=== PATIENT | female | born 1990 | race African-American/Black ===

== ENCOUNTER 2017-07-08 21:19 | Emergency (ER) | payer OTHER, SELFPAY ==
[2017-07-08 21:43] LABS: Pregnancy Test - Urine (BHCG) POSITIVE (Negative); Pregu Control Background? CLEAR/WHITE (CLR/WHITE); Pregu Control Bar Appear? YES (CONTROL BAR)
[2017-07-08 21:44] LABS: Bilirubin Negative (Negative); Blood, Urine Negative (Negative); Clarity CLEAR (Clear); Glucose, Urine (Dipstick) Negative (Negative); Leukocyte Small (Negative); Nitrite Negative (Negative); Protein, Urine (Dipstick) 30 mg/dL (Neg-Trace); Specific Gravity, Urine 1.017 (1.002-1.036); pH, Urine 8.5 (5.0-9.0)
[2017-07-08 21:46] LABS: Bacteria/HPF None Seen HPF (None Seen); Hyaline Casts/LPF 0-3 HYALINE CAST LPF (0-3 Hyaline); Pathc Cast-AUWi Flag 0.13 (0-2.49); RBC/HPF 0-3 HPF (0-3); Squamous Epithelial 0-3 HPF (0-3); WBC/HPF 0-3 HPF (0-3)
[2017-07-08 21:48] LABS: Specific Gravity 1.017 (1.002-1.036)
[2017-07-08 21:57] LABS: #Eosinphils 0.1 thou/uL (0.0-0.7); #Lymphocytes 1.3 thou/uL (1.20-3.40); #Monocytes 0.7 thou/uL (0.11-0.59); #Neutrophils 4.3 thou/uL (1.40-6.50); %Basophils 0.7 % (0.0-1.0); %Eosinophils 1.2 % (0.0-10.0); %Lymphocytes 20.2 % (21.0-51.0); %Monocytes 10.4 % (0.0-10.0); %Neutrophils 67.4 % (42.0-75.0); Hemoglobin 11.4 g/dL (12.0-16.0); Mean Corpuscular HGB CONC 33.8 g/dL (32.0-36.0); Mean Corpuscular Hemoglobin 31.9 pg (27.0-31.0); Mean Corpuscular Volume 94.6 fl (81.0-99.0); Mean Platelet Volume 6.4 fL (7.4-10.4); Platelet Count 367 thou/uL (130-400); RBC Distribution Width 12.1 % (11.5-14.5); Red Blood Cell (RBC) Count 3.56 mill/uL (4.20-5.40); White Blood Cell (WBC) Count 6.4 thou/uL (4.8-10.8)
[2017-07-08 22:16] LABS: Anion Gap 10 mmol/L (10-20); BUN (Urea Nitrogen) 6 mg/dL (7.0-18.7); Calc. Creatinine Clearance 0 mL/min (70-130); Carbon Dioxide 27 mmol/L (22-29); Chloride 102 mmol/L (98-107); Estimated GFR-MDRD Greater than 90; Glucose 88 mg/dL (70-105); Potassium 3.4 mmol/L (3.5-5.1); Sodium 136 mmol/L (136-145)
--- NOTE | 2017-07-08 23:12 | ULT ---
PELVIC ULTRASOUND 07/08/17 HISTORY: Pelvic pain with nausea and vomiting. FINDINGS: The uterus measures 11.5 cm x 6.8 cm x 8.4 cm. There is a fluid collection seen in the endometrial ca nal which contains both a pole and a yolk sac. Cardiac doppler demonstrates heart tones w ith a heart rate of 169 beats per minute. The crown-rump length measures 1.86 cm in length cons istent with mean gestational age by ultrasound of 8 weeks and 3 days. The gestational age by the last menstrual period is 22 weeks, which represents a discrepancy with size of pole on the current exam. The ovaries demonstrate a normal sonographic appearance bilateral with the right ovary measuring 4.8 cm x 1.9 cm x 2.2 cm and the left ovary measuring 4.4 cm x 1.8 cm x 3.1 cm. Fallopian tubes are unabl e to be visualized on sonographic evaluation. No free fluid is seen in the cul-de-sac. Doppler evaluation of each ovary with spectral analysis and color flow evaluation demonstrates arteri al and venous flow in each ovary. IMPRESSION: Single intrauterine gestation with heart tones documented. The gestational age by measurement of the crown-rump length is 8 weeks and 3 days which does represent a discrepancy in the gestational age compared to the last menstrual period. POS: ALLYSSA
== END 2017-07-08 23:42 | disposition home or self-care (01) ==
LOC: ERS 21:19
DX: O99.89 Other specified diseases and conditions complicating pregnancy, childbirth and the puerperium (principal); R10.2 Pelvic and perineal pain; O99.511 Diseases of the respiratory system complicating pregnancy, first trimester; J45.909 Unspecified asthma, uncomplicated; O99.341 Other mental disorders complicating pregnancy, first trimester; F41.9 Anxiety disorder, unspecified
CPT/HCPCS: 36415; 76856; 80048; 81003; 81015; 81025; 84702; 85025; 86900; 86901

== ENCOUNTER 2017-08-15 02:28 | Emergency (ER) | payer SELFPAY ==
[2017-08-15] MEDS ORDERED: Acetaminophen/Codeine 30-300mg Tablet ONE (03:18)
== END 2017-08-15 03:47 | disposition home or self-care (01) ==
LOC: ERS 02:28
DX: K03.81 Cracked tooth (principal); J45.909 Unspecified asthma, uncomplicated; F41.9 Anxiety disorder, unspecified
CPT/HCPCS: 99282

== ENCOUNTER 2018-02-05 08:39 | Inpatient (IN) | payer OTHER ==
[2018-02-05 09:45] VITALS: BMI 29.5
[2018-02-05] MEDS: Lactated Ringer's 1,000 ML IV SCH ×2 (10:30→15:07)
[2018-02-05] MEDS ORDERED: Promethazine HCl 25 MG/ML VIAL IM PRN ×3 (10:57→16:28)
[2018-02-05] MEDS ORDERED: Ondansetron HCl/PF 4 MG/2 ML Vial IVP PRN ×4 (10:57→16:28)
[2018-02-05] MEDS ORDERED: CEFAZOLIN/Water 2 GM/20 ML SYRINGE SLOW IVP SCH (11:00)
[2018-02-05] MEDS ORDERED: Bicitra 30 ML UDCUP PO SCH (11:00)
[2018-02-05 11:14] LABS: Hemoglobin 10.9 g/dL (12.0-16.0); Mean Corpuscular HGB CONC 34.6 g/dL (32.0-36.0); Mean Corpuscular Hemoglobin 32.3 pg (27.0-31.0); Mean Corpuscular Volume 93.4 fL (78.0-98.0); Mean Platelet Volume 7.7 fL (7.4-10.4); Platelet Count 365 thou/uL (130-400); RBC Distribution Width 12.1 % (11.5-14.5); Red Blood Cell (RBC) Count 3.36 mill/uL (4.20-5.40); White Blood Cell (WBC) Count 6.5 thou/uL (4.8-10.8)
[2018-02-05] MEDS ORDERED: Morphine PF 1 MG/ML SYR ONE (11:39)
[2018-02-05] MEDS ORDERED: Oxytocin 10 UNITS/ML VIAL ONE (11:39)
[2018-02-05] MEDS ORDERED: Bupivacaine 0.75% W/DEXTROSE 8.25% 2 ML AMP ONE (11:39)
[2018-02-05] MEDS ORDERED: Lidocaine 1% PF 5 ML VIAL ONE (11:39)
[2018-02-05] MEDS ORDERED: ePHEDrine/0.9% NaCl/PF SYRINGE 50 mg/10 ml ONE (11:39)
[2018-02-05 11:49] LABS: Syphilis Antibody Nonreactive (Nonreactive); Syphilis Antibody Index 0.03 S/CO (<1.00 Non-Reactive)
[2018-02-05 11:50] LABS: HBSAg Index 0.24 S/CO (0-0.99); Hep B Surf Ag Non-Reactive S/CO (NonReactive)
[2018-02-05] MEDS ORDERED: Ondansetron HCl/PF 4 MG/2 ML Vial ONE ×2 (12:28→14:10)
[2018-02-05] MEDS ORDERED: PHENYLEPHRINE-NS 100 MCG/ML 10 ML SYRINGE ONE (12:42)
[2018-02-05] MEDS ORDERED: traMADol HCl 50 MG TAB PO PRN (13:51)
[2018-02-05] MEDS ORDERED: Naloxone HCl 0.4 mg/ml Vial IVP PRN ×3 (13:54→19:43)
[2018-02-05] MEDS ORDERED: Ketorolac Tromethamine 30 MG/ML VIAL IVP PRN ×2 (13:54→19:20)
[2018-02-05] MEDS ORDERED: Promethazine HCl 25 MG SUPP PR PRN (13:54)
[2018-02-05] MEDS ORDERED: HYDROmorphone 2 MG/ML VIAL SLOW IVP PRN (13:54)
[2018-02-05] MEDS ORDERED: Meperidine HCl/PF 25 MG/ML VIAL SLOW IVP PRN (13:54)
[2018-02-05] MEDS ORDERED: Eucerin (Mineral Oil/Petrolatum,White) 30 gm Jar TOP PRN (13:54)
[2018-02-05] MEDS ORDERED: Naloxone HCl 0.4 mg/ml Vial IV PRN (13:54)
[2018-02-05] MEDS ORDERED: Communication Order-Pharmacy FS SCH (14:00)
[2018-02-05] MEDS ORDERED: Ketorolac Tromethamine 30 MG/ML VIAL IVP SCH (14:00)
[2018-02-05] MEDS ORDERED: Ketorolac Tromethamine 30 MG/ML VIAL ONE (14:10)
--- NOTE | 2018-02-05 15:00 | PDOC.LDHP ---
Labor and Delivery H&P Chief complaint: scheduled section Current gestational age (weeks): 39 Allergies/Adverse Reactions: Allergies Allergy/AdvReac Type Severity Reaction Status Date / Time diphenhydramine HCl Allergy Intermediate Verified 02/05/18 10:05 [From Benadryl] hydrocodone bitartrate Allergy Intermediate Verified 02/05/18 10:05 [From Vicodin] Penicillins Allergy Intermediate Verified 02/05/18 10:05
[2018-02-05] MEDS ORDERED: Measles/Mumps/Rubella 10 MCG/0.5 ML VIAL SC ONE (16:28)
[2018-02-05] MEDS ORDERED: NS / Oxytocin 40 units/1000ml 1,000 ML IV SCH (16:28)
[2018-02-05] MEDS ORDERED: Simethicone Chewable 80 MG TAB PO PRN (16:28)
[2018-02-05] MEDS ORDERED: Ibuprofen 800 MG TAB PO SCH (16:28)
[2018-02-05] MEDS ORDERED: Lactated Ringer's 1,000 ML IV SCH (16:28)
[2018-02-05] MEDS ORDERED: Varicella virus, LIVE 0.5 ML VIAL SC ONE (16:28)
[2018-02-05] MEDS ORDERED: Bisacodyl 10 MG SUPP PR PRN (16:28)
[2018-02-05] MEDS ORDERED: Misoprostol 200 MCG TAB PR PRN (16:28)
[2018-02-05] MEDS ORDERED: Lanolin Ointment 7 GM TUBE TOP PRN (16:28)
[2018-02-05] MEDS ORDERED: Adacel (T-DAP) 0.5 ML VIAL IM ONE (16:28)
[2018-02-06] MEDS: Docusate Calcium (SURFAK) 240 MG CAP PO SCH ×3 (01:52→21:42)
[2018-02-06] MEDS ORDERED: Zolpidem Tartrate 5 MG TAB PO PRN (02:00)
[2018-02-06 05:31] LABS: Hemoglobin 9.9 g/dL (12.0-16.0); Mean Corpuscular HGB CONC 34.3 g/dL (32.0-36.0); Mean Corpuscular Hemoglobin 32.3 pg (27.0-31.0); Mean Corpuscular Volume 94.3 fL (78.0-98.0); Mean Platelet Volume 7.4 fL (7.4-10.4); Platelet Count 325 thou/uL (130-400); RBC Distribution Width 11.9 % (11.5-14.5); Red Blood Cell (RBC) Count 3.05 mill/uL (4.20-5.40); White Blood Cell (WBC) Count 10.4 thou/uL (4.8-10.8)
[2018-02-06] MEDS: Ibuprofen 800 MG TAB PO SCH ×2 (13:56→21:41)
--- NOTE | 2018-02-06 16:34 | PDOC.PP ---
Post Progress Note Post Day #: 1 PO intake tolerated: yes Flatus: yes Ambulation: yes Vital Signs (12 hours) Temp Pulse Resp BP Pulse Ox 02/06/18 10:35 98.8 F 89 16 109/73 98 02/06/18 08:37 98.7 F 88 18 110/80 99 Weight Weight 200 lb - Physical Examination Cardiovascular: no m/r/g Respiratory: clear to auscultation bilaterally Abdominal: + bowel sounds Extremities: negative homans (B) Skin: CS incision dry & intact Neurological: no gross focal deficits Psychiatric: A&Ox3, normal affect Result Diagrams: 02/06/18 05:07 Additional Labs: Post Labs Blood Type O POSITIVE 02/05/18 09:47 Hep Bs Antigen Non-Reactive S/CO (NonReactive) 02/05/18 09:47 - Assessment/Plan Patient is doing very well. No complaints today. Possible DC to home tomorrow vs Friday.
--- NOTE | 2018-02-06 16:44 | PDOC.LDHP ---
Labor and Delivery H&P Chief complaint: scheduled section Current gestational age (weeks): 39 Due date: 02/12/18 Grav: 4 Para: 3 Current complications: none Abnormal US findings: No Current medications: pre-sherman vitamins Previous surgical history: low tranverse CS Allergies/Adverse Reactions: Allergies Allergy/AdvReac Type Severity Reaction Status Date / Time diphenhydramine HCl Allergy Intermediate Verified 02/05/18 10:05 [From Benadryl] hydrocodone bitartrate Allergy Intermediate Verified 02/05/18 10:05 [From Vicodin] Penicillins Allergy Intermediate Verified 02/05/18 10:05 - Physical Exam Vital signs reviewed and normal: yes General: NAD Heart: RRR Lungs: CTAB Abdomen: gravid Extremeties: no edema FHT: category 1 - Assessment L&D Assessment: scheduled repeat section - Plan Plan: admit to L&D -: Repeat 3RD TODAY.
--- NOTE | 2018-02-06 19:13 | OP-2 ---
DATE OF SERVICE: 02/05/2018 PREOPERATIVE DIAGNOSIS: Intrauterine at 39 weeks and 0 days with a history of 3 previous c esarean sections and a repeat fourth scheduled section. POSTOPERATIVE DIAGNOSIS: Intrauterine at 39 weeks and 0 days with a history of 3 previous sections and a repeat fourth scheduled section. PROCEDURE: Repeat section. FINDINGS: Viable male weighing 3450 grams or 7 pounds 10 ounces, Apgars of 8 and 8. QUANTITATIVE BLOOD LOSS: 370 mL COMPLICATIONS: None. DETAILS OF THE PROCEDURE: The patient was consented and taken back to the operating room where spina l anesthesia was found to be adequate. She was then prepped and draped in the normal sterile fashion . A time out was performed by the entire operative team. The incision was then marked with a marking pen tested using sharp pickups. An incision was then made with a scalpel. The incision was carried through the adipose tissue down to the underlying rectus fascia using both sharp dissection as well as cautery. Once the fascia was identified, it was incised in the midline and then the fascial incis ion was carried through in both lateral directions using sharp as well as cautery dissection techniqu es. Next, the superior aspect of the rectus fascia was grasped with 2 Alem clamps which was tented up and the rectus muscles were dissected off using blunt dissection as well as cautery dissection. Similarly, the inferior aspect of the fascial incision was grasped with 2 Alem clamps, tented up an d the rectus muscles were dissected off bluntly as well as sharply. Next, the rectus muscles were se parated in the midline and the peritoneum identified. The peritoneum was then carefully grasped with two hemostats and entered sharply. The peritoneal incision was extended superiorly and inferiorly a nd bladder blade was placed in the lower abdomen. At this point, the uterus was identified and the b ladder flap was then developed using pickups with teeth as well as Metzenbaum scissors in both latera l directions. The bladder flap was then dissected downwards using the joggle press operator's finger as well as M etzenbaum scissors. The bladder blade was replaced. The lower uterine segment was then identified a nd entered sharply using a clean scalpel. The uterine incision was then dissected downwards until th in layer of muscle remained and this was entered bluntly using a hemostat to avoid any injury to the baby. The uterine incision was then stretched using two fingers in both lateral directions. An amniotomy was performed artificially using a hemostat and the baby was delivered using fundal pres sure in a gentle fashion. Once out, the baby's mouth and nose were bulb suctioned, cord clamped and cut, and the baby was handed to waiting attendants. Next, the uterus was exteriorized, cleared of al l clots and debris and the uterine incision was repaired with #1 Monocryl in a running locking fashio n. A second suture of the same type was used to obtain complete hemostasis at the uterine incision. The bladder flap was reapproximated using 3-0 Monocryl. Next, patient's left and right adnexa were inspected and appeared to be within normal limits. The posterior cul-de-sac was blotted dry and hemo stasis assured. One more look at the uterine incision demonstrated hemostasis. Next, the uterus was replaced back within the abdomen. The peritoneum was reapproximated using 2-0 Monocryl without diff iculty. The rectus muscles were then allowed to come back together and 0 chromic was used to aid in reapproximation of the muscle as necessary. The rectus fascia was then reapproximated in a running f ashion using 0 Vicryl suture. The adipose tissue was then examined and appeared to be well approxima [place] without any obvious separations. Finally, the skin was reapproximated with 3-0 Monocryl on a Aureliano th needle without difficulty and Dermabond adhesive was applied to the skin. Once the glue was dry, the drapes were removed and the patient was transferred to an ambulatory bed where she was taken [facility] awake and in stable condition. Sponge, lap, and needle counts were correct x3.
--- NOTE | 2018-02-07 02:50 | PDOC.PP ---
Post Progress Note Post Day #: 2 Subjective: Doing well, no complaints PO intake tolerated: yes Flatus: yes Ambulation: yes Vital Signs (12 hours) Temp Pulse Resp BP Pulse Ox 02/07/18 00:32 98.2 F 86 18 115/82 02/06/18 20:30 97.8 F 79 20 110/78 98 02/06/18 17:45 98.1 F 86 20 108/68 98 Weight Weight 200 lb - Physical Examination General: NAD Cardiovascular: no m/r/g Respiratory: clear to auscultation bilaterally Abdominal: + bowel sounds, lochia, no distention, appropriately TTP Extremities: negative homans (B) Skin: CS incision dry & intact (Sutured and DB) Neurological: no gross focal deficits Psychiatric: A&Ox3, normal affect Result Diagrams: 02/06/18 05:07 Additional Labs: Post Labs Blood Type O POSITIVE 02/05/18 09:47 Hep Bs Antigen Non-Reactive S/CO (NonReactive) 02/05/18 09:47 (1) delivery delivered Code(s): O82 - ENCOUNTER FOR DELIVERY WITHOUT INDICATION Status: Acute - Assessment/Plan Patient seen and evaluated at bedside. POD 2 desires DC home at 1400 which is after her 48 hrs of observation. No evidence of ilius. OK for dsch.
--- NOTE | 2018-02-07 02:51 | PDOC.EVN ---
Event Note - Event Note Event Note: DISCHARGE SUMMARY Admit: 02/05/18 Discharge date: 02/07/18 Procedure: Repeat CS at term Please see completed green discharge note in paper record.
[2018-02-07] MEDS: Ibuprofen 800 MG TAB PO SCH (06:11)
[2018-02-07] MEDS: Docusate Calcium (SURFAK) 240 MG CAP PO SCH (09:11)
[2018-02-07 11:30] VITALS: BP 118/68; TEMP 98.3
== END 2018-02-07 12:45 | disposition home or self-care (01) | DRG 766 ==
LOC: L&D 08:39 → 3SW 16:24
PROVIDERS: ADMIT Obstetrics & Gynecology; ATTEND Obstetrics & Gynecology
PROC: 10D00Z1 Extraction of Products of Conception, Low, Open Approach (ICD-10-PCS; principal; 2018-02-05)
DX: O34.211 Maternal care for low transverse scar from previous cesarean delivery (principal); N85.8 Other specified noninflammatory disorders of uterus; Z3A.39 39 weeks gestation of pregnancy; Z37.0 Single live birth
CPT/HCPCS: 36415; 51702; 85027; 86780; 86850; 86900; 86901; 87340; 90715; 90716; J1885; J2001; J2274; J2310; J2405; J2550; J2590; J3490

== ENCOUNTER 2018-02-12 07:41 | Emergency (ER) | payer OTHER ==
[2018-02-12] MEDS ORDERED: Ondansetron HCl/PF 4 MG/2 ML Vial ONE (08:22)
[2018-02-12] MEDS ORDERED: Morphine 4 MG/ML VIAL ONE (08:22)
[2018-02-12 08:33] LABS: Bilirubin Negative (Negative); Blood, Urine Small (Negative); Clarity CLEAR (Clear); Glucose, Urine (Dipstick) Negative (Negative); Leukocyte Negative (Negative); Nitrite Negative (Negative); Protein, Urine (Dipstick) 100 mg/dL (Neg-Trace); Specific Gravity, Urine 1.023 (1.002-1.036)
[2018-02-12 08:36] LABS: Hyaline Casts/LPF 7-10 HYALINE CAST LPF (0-3 Hyaline); Pathc Cast-AUWi Flag 1.01 (0-2.49); Squamous Epithelial 0-3 HPF (0-3); WBC/HPF 0-3 HPF (0-3)
[2018-02-12 08:40] LABS: #Eosinphils 0.5 thou/uL (0.0-0.7); #Lymphocytes 1.6 thou/uL (1.20-3.40); #Monocytes 0.7 thou/uL (0.11-0.59); #Neutrophils 8.9 thou/uL (1.40-6.50); %Basophils 0.3 % (0.0-1.0); %Eosinophils 4.4 % (0.0-10.0); %Lymphocytes 13.3 % (21.0-51.0); %Monocytes 6.1 % (0.0-10.0); %Neutrophils 75.9 % (42.0-75.0); Hemoglobin 9.8 g/dL (12.0-16.0); Mean Corpuscular HGB CONC 32.2 g/dL (32.0-36.0); Mean Corpuscular Hemoglobin 30.6 pg (27.0-31.0); Mean Corpuscular Volume 95.1 fL (78.0-98.0); Mean Platelet Volume 6.4 fL (7.4-10.4); Platelet Count 439 thou/uL (130-400); RBC Distribution Width 11.9 % (11.5-14.5); Red Blood Cell (RBC) Count 3.21 mill/uL (4.20-5.40); White Blood Cell (WBC) Count 11.7 thou/uL (4.8-10.8)
[2018-02-12 08:50] LABS: Bacteria/HPF Rare-Few HPF (None Seen)
[2018-02-12 08:58] LABS: Anion Gap 12 mmol/L (10-20); BUN (Urea Nitrogen) 8 mg/dL (7.0-18.7); Calc. Creatinine Clearance 0 mL/min (70-130); Calcium 8.5 mg/dL (7.8-10.44); Carbon Dioxide 24 mmol/L (22-29); Chloride 108 mmol/L (98-107); Estimated GFR-MDRD Greater than 90; Glucose 84 mg/dL (70-105); Potassium 3.7 mmol/L (3.5-5.1); Sodium 140 mmol/L (136-145)
[2018-02-12] MEDS ORDERED: Ondansetron ODT 4 MG TAB ONE (09:03)
[2018-02-12] MEDS ORDERED: Acetaminophen 500 MG TAB ONE (09:03)
--- NOTE | 2018-02-12 09:30 | ULT ---
TRANSABDOMINAL PELVIC ULTRASOUND: TECHNIQUE: Nation scale and Doppler color flow performed. CLINICAL HISTORY: Pelvic pain and fever with a history of recent section. FINDINGS: There is enlargement of the peripartum uterus. Thickening and heterogeneous echotexture of the endom etrium present, with endometrial stripe measuring up to 19 mm. Doppler assessment reveals flow to ea ch ovary. No significant free pelvic fluid. IMPRESSION: 1. Enlarged peripartum uterus. 2. There is thickening, and heterogeneity of the endometrium which is nonspecific. This could relat e to recent postoperative state, or alternatively endometritis, or retained products of conception. Recommend clinical correlation in this regard and, in addition, imaging followup should be obtained t o confirm appropriate resolution. POS: ALLYSSA
== END 2018-02-12 09:53 | disposition home or self-care (01) ==
LOC: ERS 07:41
DX: N71.9 Inflammatory disease of uterus, unspecified (principal)
CPT/HCPCS: 76856; 80048; 81003; 81015; 84702; 85025; 93976; J2270; J2405; Q0162

== ENCOUNTER 2019-08-08 09:34 | Emergency (ER) | payer OTHER, SELFPAY ==
--- NOTE | 2019-08-08 10:22 | RAD ---
Left ankle 3 views HISTORY: Left ankle pain. FINDINGS: Ankle mortise and talar dome are intact. No acute fracture or dislocation evident. No signi ficant fluid distention of the joint capsule. Loss of plantar arch on the lateral view. IMPRESSION: No acute osseous abnormalities are demonstrated Pes planus.
== END 2019-08-08 10:58 | disposition home or self-care (01) ==
LOC: ERS 09:34
DX: M72.2 Plantar fascial fibromatosis (principal); J45.909 Unspecified asthma, uncomplicated; F17.210 Nicotine dependence, cigarettes, uncomplicated

== ENCOUNTER 2021-05-17 17:17 | Emergency (ER) | payer SELFPAY ==
[2021-05-17] MEDS ORDERED: Ibuprofen 200 MG TAB ONE (18:52)
[2021-05-17] MEDS ORDERED: Acetaminophen 500 MG TAB ONE (18:52)
[2021-05-18 09:26] LABS: SARS-CoV-2 PCR by NAA DETECTED (NotDetected)
== END 2021-05-17 18:59 | disposition home or self-care (01) ==
LOC: ERS 17:17
DX: U07.1 COVID-19 (principal); J45.909 Unspecified asthma, uncomplicated; F17.210 Nicotine dependence, cigarettes, uncomplicated
CPT/HCPCS: 87081; 87430; 87804; 99283; U0003; U0005